=== PATIENT | male | born 1965 | race Asian ===

== ENCOUNTER 2019-05-26 03:08 | Emergency (ER) | payer OTHER ==
[~2019-05-26] VITALS: Ht 162.6 cm; Wt 68.6 kg
[~2019-05-26 03:08] MED LIST: MECL12.574 PO
[2019-05-26 03:17] VITALS: Ht 162.6 cm; Wt 68.6 kg
[2019-05-26] MEDS ORDERED: MECLIZINE 12.5 MG TAB PO ONE (07:00)
[2019-05-26 07:11] VITALS: BP 142/78; PULSE 78; RESP 18
== END 2019-05-26 07:42 | disposition home or self-care (01) ==
LOC: E/R 03:08
DX: R42 Dizziness and giddiness (principal)
CPT/HCPCS: 80053; 83690; 84484; 85025; 93005; Z7610; 36415